=== PATIENT | female | born 1975 ===

== ENCOUNTER 2017-06-01 11:00 | Inpatient (IN) | payer OTHER ==
[~2017-06-01] VITALS: Ht 165.1 cm; Wt 63.5 kg
[2017-06-07] MEDS ORDERED: PERCOCET 5-3251 EACH PO (09:46)
[2017-06-07] MEDS ORDERED: INTESTINEX680 M1 PO (09:46)
== END 2017-06-07 13:36 | DRG 331 ==
LOC: O/R 06-05 06:07 → SURH 06-05 06:07
PROVIDERS: Surgery
PROC: 0DJD8ZZ Inspection of Lower Intestinal Tract, Via Natural or Artificial Opening Endoscopic (ICD-10-PCS; 2017-06-05)
PROC: 0DTE4ZZ Resection of Large Intestine, Percutaneous Endoscopic Approach (ICD-10-PCS; principal; 2017-06-05 12:30)
DX: K57.32 Diverticulitis of large intestine without perforation or abscess without bleeding (principal); J45.998 Other asthma